=== PATIENT | female | born 1990 | race African-American/Black ===

== ENCOUNTER 2018-12-18 14:03 | Emergency (ER) | payer OTHER ==
[~2018-12-18] VITALS: Ht 165.1 cm; Wt 57.1 kg
[~2018-12-18 14:03] MED LIST: DOXYCYCLINE 10100 MG PO; FLAGYL500 MG PO; PERCOCET 5-3251 EACH PO
[2018-12-18 14:35] LABS: URINE BILIRUBIN NEGATIVE (Negative); URINE BLOOD NEGATIVE (Negative); URINE CLARITY CLEAR; URINE COLOR YELLOW; URINE GLUCOSE-RANDOM* NEGATIVE (Negative); URINE KETONES NEGATIVE (Negative); URINE LEUKOCYTES-REFLEX NEGATIVE (Negative); URINE NITRITE-REFLEX NEGATIVE (Negative); URINE PROTEIN (DIPSTICK) TRACE (Negative); URINE SPECIFIC GRAVITY >= 1.030 (1.005-1.035); URINE UROBILINOGEN 0.2 E.U./dl (0.2-1.0)
[2018-12-18] MEDS ORDERED: FLAGYL500 M1 PO (15:37)
[2018-12-18 15:58] VITALS: BP 117/72
--- NOTE | 2018-12-18 22:40 | NUR ---
BIANCA BOCANEGRA NOTIFIED OF POSITIVE CHLAMYDIA RESULT THAT WAS PRINTED OFF ON PRINTER. BIANCA STATED THAT SHE ALREADY TREATED THE PATIENT PROPHYLACTICALLY WHEN SHE WAS IN THE DEPARTMENT AND INFORMED THE PATIENT THAT SHE WOULD NOT CALL IF IN FACT THE RESULTS WERE POSITIVE.
== END 2018-12-18 15:59 | disposition home or self-care (01) ==
LOC: ER 14:03
PROVIDERS: Physician Assistant
DX: A59.01 Trichomonal vulvovaginitis (principal); Z20.2 Contact with and (suspected) exposure to infections with a predominantly sexual mode of transmission